=== PATIENT | female | born 1985 | race Caucasian/White ===

== ENCOUNTER 2017-08-30 01:18 | Emergency (ER) | payer MEDICAID ==
[~2017-08-30] VITALS: Ht 167.6 cm; Wt 69.1 kg
[2017-08-30 01:28] VITALS: Ht 167.6 cm; Wt 69.1 kg
[2017-08-30 02:51] VITALS: BP 119/82
== END 2017-08-30 02:51 | disposition left against medical advice (07) ==
LOC: ED 01:18
DX: Z53.21 Procedure and treatment not carried out due to patient leaving prior to being seen by health care provider (principal)